=== PATIENT | male | born 1995 | race Caucasian/White ===

== ENCOUNTER 2019-08-29 12:10 | Emergency (ER) | payer OTHER ==
[~2019-08-29] VITALS: Ht 182.9 cm; Wt 129.6 kg
--- NOTE | 2019-08-29 13:02 | NUR ---
PT TO ED FROM C/O L SIDE ABD PAIN MORE UPPER QUAD. PAIN ON INSP. "I THINK IT'S MY SPLEEN" DENIES TRAUMA/MONO. NORMAL BMS. PAIN ON PALP L SIDE. TOLD MD NO PAIN IN ABD SO CXR ORDERED, DR NOLAN MADE AWARE OF DIFFERENCE IN EXAMS, NO CT ORDERED AT THIS TIME. DENIES N/V/D/FEVER/CHILLS. LABS PENDING/CXR PENDING. CALL DE PAZ IN REACH.
[2019-08-29 13:09] LABS: BASOPHILS # (AUTO) 0.06 x10^3/uL (0-0.1); BASOPHILS % (AUTO) 1 % (0-1); EOSINOPHILS # (AUTO) 0.08 x10^3/uL (0-0.4); EOSINOPHILS % (AUTO) 1 % (1-7); LYMPHOCYTES # (AUTO) 1.85 x10^3/uL (1-3.4); LYMPHOCYTES % (AUTO) 17 % (22-44); MD NO; MEAN CORPUSCULAR HEMOGLOBIN 30.1 pg (27.5-34.5); MEAN CORPUSCULAR HGB CONC 34.2 g/dL (33.2-36.2); MEAN CORPUSCULAR VOLUME 87.9 fL (81-97); MONOCYTES # (AUTO) 0.78 x10^3/uL (0.2-0.8); MONOCYTES % (AUTO) 7 % (2-9); NEUTROPHILS % (AUTO) 75 % (42-75); PLATELET COUNT 304 x10^3/uL (130-400); RED BLOOD COUNT 5.28 x10^6/uL (4.38-5.82); RED CELL DISTRIBUTION WIDTH 13.3 % (9.4-14.8)
[2019-08-29 13:17] LABS: ALANINE AMINOTRANSFERASE 33 U/L (12-78); ALBUMIN 4.2 g/dL (3.4-5.0); ANION GAP 6 mmol/L (5-15); CALCIUM 9.5 mg/dL (8.5-10.1); CHLORIDE 107 mmol/L (98-107)
[2019-08-29 13:20] LABS: ALKALINE PHOSPHATASE 75 U/L (45-117); BILIRUBIN,TOTAL 0.8 mg/dL (0.2-1.0); CREATININE 1.07 mg/dL (0.7-1.3); TOTAL PROTEIN 8.5 g/dL (6.4-8.2)
[2019-08-29 14:00] LABS: MICROSCOPIC INDICATED
[2019-08-29 14:06] VITALS: BP 140/66
--- NOTE | 2019-08-29 14:06 | NUR ---
URINE PENDING. NAD.
[2019-08-29 14:20] LABS: CULTURE INDICATED? NO
--- NOTE | 2019-08-29 14:24 | NUR ---
LABS/UA BACK. RECHECK. PT RESTING IN BED, NAD. CALL DE PAZ IN REACH.
== END 2019-08-29 14:37 | disposition left against medical advice (07) ==
LOC: ED 13:40
DX: R07.1 Chest pain on breathing (principal)
CPT/HCPCS: 36415; 71046; 80053; 81001; 83690; 85025; 93005; 99285